=== PATIENT | female | born 1965 | race Caucasian/White ===

== ENCOUNTER 2025-05-05 10:39 | Outpatient (REF) | payer OTHER, SELFPAY ==
--- NOTE | ~2025-05-05 | XR_ITS ---
CLINICAL HISTORY: CHRONIC COUGH 2 view chest x-ray Comparison: None provided Findings: No consolidation or effusion. Normal size heart. No acute fracture. IMPRESSION: 1. No acute findings. This document has been electronically signed by: Niranjan Drummond MD on 05/07/2025 09:54:39
--- OUTSIDE RECORDS SUMMARY | 2025-05-05 11:53 | XMS_ITS | Clinical Summary ---
Author Organization [facility] 299 [facility] Address [address] [place] [address] Phone Care Team Providers Care Radio Script Writer Name Role Phone CalderonLeopoldo carroll NOAH Primary Care Provider Allergies Active Allergy Reactions Criticality Noted Date Comments Moxifloxacin Itching 01/01/2025 Cefdinir GI intolerance 01/01/2025 Medications Gavilax 17 gram/dose oral powder 17 GM BY MOUTH DAILY. DISSOLVE IN 4 TO 8 OZ OF BEVERAGE 4 Active nortriptyline (PAMELOR) 10 mg capsule Take 1 capsule (10 mg total) by mouth at bedtime. 4 Active lisinopriL (PRINIVIL,ZESTR IL) 10 mg tablet Take 1 tablet (10 mg total) by mouth. 5 Active acetic acid-hydrocorti sone (VOSOL-HC) otic solution INSTILL 4 DROPS INTO BOTH EARS DAILY 4 Active estradioL (Vivelle-Dot) 0.05 mg/24 hr See Instructions, 1 patch - change twice a week, # 24 patch, 4 Refills, Maintenance, 06/25/24 11:38:00 AM EDT, [facility], Partial fill upon patient request if the prescription is for a schedule II opioid drug., 162, cm, 06/25/24 11:23:00 EDT, Height, 62.2, kg, 11/13/23 13:59:00 EST, Dry Weight 4 Active amLODIPine (NORVASC) 2.5 mg tablet Take 1 tablet (2.5 mg total) by mouth. 5 Active acetaminophen (TYLENOL) 325 mg tablet 2 TABLET BY MOUTH EVERY 4 HOURS,INSTR:NOT TO EXCEED 4000 MG/DAY CAN GET OTC IF LESS EXPENSIVE Active Surgical History Surgery Date Site/Laterality Comments COLONOSCOPY 09/22/2024 TA x 3 COLONOSCOPY W/ POLYPECTOMY 09/06/2020 TA x 2 ESOPHAGOGASTRODUODENOSCOPY 09/06/2020 nl gastric and duodenal bx Medical History Medical History Date Comments Dyspepsia Constipation by outlet dysfunction Social History Tobacco Use Types Packs/Day Years Used Date Smoking Tobacco: Former Cigarettes Tobacco Cessation:Counseling Given: Not Answered Alcohol Use Standard Drinks/Week Comments Yes 0 (1 standard drink = 0.6 oz pur e alcohol) socially Comments Unknown Sex and Gender Information Value Date Recorded Sex Assigned at Not on file Legal Sex Female 3:43 AM EST Gender Identity Not on file Sexual Orientation Not on file Obstetrics History Last Filed Vital Signs Vital Sign Reading Time Taken Comments Blood Pressure - - Pulse - - Temperature - - Respiratory Rate - - Oxygen Saturation - - Inhaled Oxygen Concentration - - Weight 63.5 kg (140 lb) 01/01/2025 9:54 AM EST Height 162.6 cm (5' 4 ) 01/01/2025 9:54 AM EST Body Mass Index 24.03 01/01/2025 9:54 AM EST Plan of Treatment Health Maintenance Due Date Last Done Comments Breast Cancer Screening 1965 DTaP,Tdap,and Td Vaccines (1 - Tdap) 1984 Cervical Cancer Screening: Pap Smear 1986 Pneumococcal Vaccine: 50+ Years (1 of 1 - PCV) 2015 Zoster Vaccines (1 of 2) 2015 COVID-19 Vaccine ( season) 2024 01/20/2023, 11/19/2021, 03/17/2021, Additional history exists Cholesterol Screening (Lipid Panel) 08/12/2024 Colorectal Cancer Screening: Colonoscopy 08/12/2024 Depression Screening 08/12/2024 HIV Screening 08/12/2024 Hepatitis C Screening 08/12/2024 Social Influencers of Health Screening 08/12/2024 Hypertension/CHF/CAD Annual BMP Blood Test 12/26/2024 Influenza Vaccine (Season Ended) 2025 RSV Immunization Adult Patients (1 - 1-dose 75+ series) 2040 HIB Vaccines Aged Out No longer eligi ble based on patient's age to complete this topic HPV Vaccines Aged Out No longer eligi ble based on patient's age to complete this topic Hepatitis A Vaccines Aged Out No long er eligible based on patient's age to complete this topic Hepatitis B Vaccines Aged Out No long er eligible based on patient's age to complete this topic IPV Vaccines Aged Out No longer eligi ble based on patient's age to complete this topic MMR Vaccines Aged Out No longer eligi ble based on patient's age to complete this topic Meningococcal ACWY Vaccine Aged Out N o longer eligible based on patient's age to complete this topic Meningococcal B Vaccine Aged Out No l onger eligible based on patient's age to complete this topic Pneumococcal Vaccine: Pediatrics (0 to 5 Years) and At-Risk Patients (6 to 64 Years) Aged Out No longer eligible based on patient's age to complete this topic RSV Immunization Patients Under 20 months Aged Out No longer eligible based on patient's age to complete this topic Varicella Vaccines Aged Out No longer eligible based on patient's age to complete this topic Insurance [facility] Care Teams Radio Script Writer Relationship Specialty Start Date End Date Leopoldo Washburn NP [address] [place] [address] PCP - General Nurse Practitioner 01/01/25
== END 2025-05-05 10:40 | disposition home or self-care (01) ==
LOC: HO.XRAY 10:39
PROVIDERS: PCP Nurse Practitioner Family; Visit Provider Otolaryngology
DX: R05.3 Chronic cough (principal)
CPT/HCPCS: 71046

== ENCOUNTER → 2025-05-05 10:46 | Outpatient (BNV) | payer OTHER, SELFPAY | PROVIDERS: PCP Nurse Practitioner Family; Visit Provider Specialist | DX: R05.3 Chronic cough (principal) | CPT/HCPCS: 71046 ==

== ENCOUNTER 2025-06-23 10:44 | Outpatient (AMB) | payer OTHER, SELFPAY ==
--- OUTSIDE RECORDS SUMMARY | 2025-06-23 12:11 | XMS_ITS | Clinical Summary ---
Author Organization [facility] 299 [facility] Address [address] [place] [address] Phone Care Team Providers Care Rubber Cutting Machine Tender Name Role Phone CalderonLeopoldo carroll NOAH Primary Care Provider [phone] Allergies Active Allergy Reactions Criticality Noted Date Comments Moxifloxacin Itching 01/01/2025 Cefdinir GI intolerance 01/01/2025 Medications Gavilax 17 gram/dose oral powder 17 GM BY MOUTH DAILY. DISSOLVE IN 4 TO 8 OZ OF BEVERAGE 4 Active lisinopriL (PRINIVIL,ZESTR IL) 10 mg [...] MG/DAY CAN GET OTC IF LESS EXPENSIVE 5 Active nortriptyline (PAMELOR) 10 mg capsuleIndicati ons:Inflammator y bowel diseases (IBD) TAKE 1 CAPSULE DAILY EVERY NIGHT AT BEDTIME 90 capsule 3 Active Surgical History Surgery Date Site/Laterality Comments [...] Panel) 08/12/2024 Colorectal Cancer Screening: Colonoscopy 08/12/2024 HIV Screening 08/12/2024 Hepatitis C Screening 08/12/2024 Social Influencers of Health Screening 08/12/2024 Depression Screening 11/05/2024 Hypertension/CHF/CAD Annual BMP Blood Test 12/26/2024 Influenza Vaccine (#1) 2025 RSV Immunization Adult Patients (1 - [...] patient's age to complete this topic Insurance [facility] Care Teams Rubber Cutting Machine Tender Relationship Specialty Start Date End Date Leopoldo Washburn NP [address] [place] [address] PCP - General Nurse Practitioner 01/01/25
== END 2025-06-23 10:58 | disposition home or self-care (01) ==
LOC: HO.HMGAL 10:44
PROVIDERS: Visit Provider Registered Nurse Emergency
DX: J30.89 Other allergic rhinitis (principal)
CPT/HCPCS: 95117; 95165

== ENCOUNTER 2025-07-01 13:14 | Outpatient (AMB) | payer OTHER, SELFPAY ==
--- OUTSIDE RECORDS SUMMARY | 2025-07-01 13:55 | XMS_ITS | Clinical Summary ---
Author Organization [facility] 299 [facility] Address [address] [place] [address] Phone Care Team Providers Care Superintendent [employer] Name Role Phone CalderonLeopoldo carroll NOAH Primary Care Provider [phone] Allergies Active Allergy Reactions Criticality Noted Date [...] patient's age to complete this topic Insurance [facility] Care Teams Superintendent [employer] Relationship Specialty Start Date End Date Leopoldo Washburn NP [address] [place] [address] PCP - General Nurse Practitioner 01/01/25
== END 2025-07-01 13:16 | disposition home or self-care (01) ==
LOC: HO.HMGAL 13:14
PROVIDERS: Visit Provider Registered Nurse Emergency
DX: J30.89 Other allergic rhinitis (principal)
CPT/HCPCS: 95117; 95165

== ENCOUNTER 2025-07-08 11:46 | Outpatient (AMB) | payer OTHER, SELFPAY ==
--- OUTSIDE RECORDS SUMMARY | 2025-07-08 14:10 | XMS_ITS | Clinical Summary ---
Author Organization [facility] 299 [facility] Address [address] [place] [address] Phone Care Team Providers Care Composing Room Machinist Name Role Phone CalderonLeopoldo carroll NOAH Primary Care Provider [phone] Allergies Active Allergy Reactions Criticality Noted Date [...] 2015 Zoster Vaccines (1 of 2) 2015 Cholesterol Screening (Lipid Panel) 08/12/2024 Colorectal Cancer Screening: Colonoscopy 08/12/2024 HIV Screening 08/12/2024 Hepatitis C Screening 08/12/2024 Social Influencers of Health Screening 08/12/2024 Depression Screening 11/05/2024 Hypertension/CHF/CAD Annual BMP Blood Test 12/26/2024 COVID-19 Vaccine ( season) 2025 01/20/2023, 11/19/2021, 03/17/2021, Additional history exists Influenza Vaccine (#1) 2025 RSV Immunization Adult [...] patient's age to complete this topic Insurance [facility] Care Teams Composing Room Machinist Relationship Specialty Start Date End Date Leopoldo Washburn NP [address] [place] [address] PCP - General Nurse Practitioner 01/01/25
== END 2025-07-08 12:45 | disposition home or self-care (01) ==
LOC: HO.HMGAL 11:46
PROVIDERS: Visit Provider Registered Nurse Emergency
DX: J30.89 Other allergic rhinitis (principal)
CPT/HCPCS: 95117; 95165

== ENCOUNTER 2025-07-13 14:27 | Outpatient (AMB) | payer OTHER, SELFPAY ==
--- OUTSIDE RECORDS SUMMARY | 2025-07-09 23:59 | XMS_ITS | Continuity of Care Document ---
Author Organization [facility] Adult Address [address] [place] [address]- Care Team Providers Care Refractory Grinder Operator Name Role Phone Maddison ZAMORA, Leopoldo Otero Primary Care Physician [phone] [facility] Date(s): 06/09/25 - 07/09/[address] [address] Encounter Type: Triage Allergies, Adverse Reactions, Alerts Substance Criticality Severity Reaction Reaction Severity Status erythromycin Nausea, vomiting Active Avelox rash Active cefdinir High criticality Moderate Nausea, vom iting and diarrhea Active Valium Nausea Fainting Active Augmentin Nausea, vomiting Act dave Immunizations Given and Recorded Vaccine Date Status Refusal Reason tetanus/diphtheria/pertussis, acel(Tdap) 01/23/25 Given [id number] bivalent booster vax 01/20/23 Recorded SARS-CoV-2 (COVID-19) mRNA-1273 vaccine 11/19/21 R ecorded SARS-CoV-2 (COVID-19) mRNA-1273 vaccine 03/17/21 R ecorded SARS-CoV-2 (COVID-19) mRNA-1273 vaccine 02/16/21 R ecorded Medications lisinopril 30 mg oral tablet 1 tablet = 30 mg, By Mouth, Daily, # 90 tablet, 1 Refills, Maintenance, 03/10/25 2:58:00 PM EDT, Tablet, [facility], Partial fill upon patient request if the prescription is for a schedule II opioid drug., 163, cm, 02/24/25 14:40:00 EDT, Height, 62, kg, 12/12/24 12:39:00 EST, Dry Weight Start Date: 03/10/25 Status: Ordered Medication Dispense Status: Completed Quantity: 90.0 Unit: tablet Total Allowed Fills: 2 Fills Dispensed: 0 MiraLax = 17 Gm, By Mouth, Daily, 0 Refills, Maintenance, 01/23/25 3:02:00 PM EDT, Partial fill upon patientrequest if the prescription is for a schedule II opioid drug. Start Date: 01/23/25 Status: Ordered Medication Dispense Status: Completed Total Allowed Fills: 1 Fills Dispensed: 0 Nortriptyline = 10 mg, By Mouth, Daily at bedtime, 0 Refills, Maintenance, 06/19/23 10:26:00 AM EDT, Partial fill upon patient request if the prescription is for a schedule II opioid drug. Start Date: 06/19/23 Status: Ordered Medication Dispense Status: Completed Total Allowed Fills: 1 Fills Dispensed: 0 Vivelle-Dot 0.05 mg/24 hours twice weekly transdermal film, extended release See Instructions, 1 patch - change twice a week, # 24 patch, 4 Refills, Maintenance, 06/01/25 1:09:00 PM EDT, [id number], Partial fill upon patient request if the prescription is for a schedule II opioid drug., 163, cm, 04/29/25 11:14:00 EDT, Height, 62, kg, 12/12/24 12:39:00 EST, Dry Weight Start Date: 06/01/25 Status: Ordered Medication Dispense Status: Completed Quantity: 24.0 Unit: patch Total Allowed Fills: 5 Fills Dispensed: 0 Problem List Condition Confirmation Course Effective Dates Status H ealth Status Informant Atypical chest pain Confirmed Active Chronic neck pain Confirmed Active Muscle cramps Confirmed Active Cystocele Confirmed Active Decreased hearing of both ears Confirmed Active Diarrhea Confirmed Active Digital mucous cyst of toe of left foot Confirmed Active Dyslipidemia Confirmed Active Exertional dyspnea Confirmed Active Flushing Confirmed Active Flushing Confirmed Active Chronic GERD Confirmed Active Rectocele Confirmed Active Hormone replacement therapy (HRT) Confirmed Active Hyperlipidemia Confirmed Active Hypertension Confirmed Active Urinary frequency Confirmed Active Irritable bowel syndrome Confirmed Active Menopause Confirmed Active Transient weakness of right lower extremity Confirmed Active Postprandial nausea Confirmed Active Orthopnea Confirmed Active Palpitations Confirmed Active Palpitations Confirmed Active PONV (postoperative nausea and vomiting) Confirmed Active Implantable Device List Procedure Provider Procedure Date Device Type Site Robotic XI Vaginal Hyst Salpingectomy Polly Bhatt MD 08/23/23 Unknown Bladder Device Identifier Serial Number Lot or Batch Number Manufacturing Date Expiration Date Distinct Identification Code MRI Safety Implantable Status Assigning Authority Unknown Unknown Unknown Unknown 05/21/26 Unknown Unknown Active Unk nown Procedure Provider Procedure Date Device Type Site Robotic XI Vaginal Hyst Salpingectomy Polly Bhatt MD 08/23/23 Unknown Pelvis Device Identifier Serial Number Lot or Batch Number Manufacturing Date Expiration Date Distinct Identification Code MRI Safety Implantable Status Assigning Authority Unknown Unknown Unknown Unknown 03/12/26 Unknown Unknown Active Unkn own Patient Care team information Care Team Personnel Name: Mercedes Pugh RN Position: [facility] RN Member Role: Primary Care Nurse Name: Bertha Hughes RN Position: [facility] SN RN Member Role: Primary Care Nurse Name: Louisa Alarcon RN Position: [facility] RN Member Role: Primary Care Nurse Name: Leopoldo Washburn NP Position: [facility] PCO Associate Professional Member Role: PCP Address: [address] [place] [address]- Telecom: Name: Matt Reddy MD Position: [facility] ASSEMBLY INSPECTOR HELPER MD Member Role: [employer] ASSEMBLY INSPECTOR HELPER Physician Address: [address] [place] [address] [place] [address]- Telecom: Care Team Related Persons Name: EBONI PORTILLO Name: DOUGLAS PORTILLO Name: LILLIE WOODARD Name: LILLIE WOODARD Insurance Providers Guarantor name: YUMIKO WOODARD Health Plan Information #: 1 Payer: [employer] Payer Identifier: NA Member Number: [id number] Group Number: [id number] Subscriber Identifier: NEAL Relationship to Subscriber: spouse Coverage Type: Commercial Indemnity Coverage Verification Date: NA Telecom: NA Address: NA
--- OUTSIDE RECORDS SUMMARY | 2025-07-13 16:49 | XMS_ITS | Clinical Summary ---
Author Organization [facility] 299 [facility] Address [address] [place] [address] Phone Care Team Providers Care Facialist Name Role Phone CalderonLeopoldo carroll NOAH Primary Care Provider [phone] Allergies Active Allergy Reactions Criticality Noted Date [...] patient's age to complete this topic Insurance [facility] Care Teams Facialist Relationship Specialty Start Date End Date Leopoldo Washburn NP [address] [place] [address] PCP - General Nurse Practitioner 01/01/25
== END 2025-07-13 14:31 | disposition home or self-care (01) ==
LOC: HO.HMGAL 14:27
PROVIDERS: Visit Provider Registered Nurse Emergency
DX: J30.89 Other allergic rhinitis (principal)
CPT/HCPCS: 95117; 95165

== ENCOUNTER 2025-07-20 11:49 | Outpatient (AMB) | payer OTHER, SELFPAY ==
--- OUTSIDE RECORDS SUMMARY | 2025-07-20 16:28 | XMS_ITS | Clinical Summary ---
Author Organization [facility] 299 [facility] Address [address] [place] [address] Phone Care Team Providers Care Oxyhydrogen Welder Name Role Phone CalderonLeopoldo carroll NOAH Primary Care Provider [phone] Allergies Active Allergy Reactions Criticality Noted Date [...] patient's age to complete this topic Insurance [facility] Care Teams Oxyhydrogen Welder Relationship Specialty Start Date End Date Leopoldo Washburn NP [address] [place] [address] PCP - General Nurse Practitioner 01/01/25
== END 2025-07-20 11:49 | disposition home or self-care (01) ==
LOC: HO.HMGAL 11:49
PROVIDERS: PCP Nurse Practitioner Family; Visit Provider Registered Nurse Emergency
DX: J30.89 Other allergic rhinitis (principal)
CPT/HCPCS: 95117; 95165

== ENCOUNTER 2025-07-27 11:52 | Outpatient (AMB) | payer OTHER, SELFPAY ==
--- OUTSIDE RECORDS SUMMARY | 2025-07-27 14:35 | XMS_ITS | Clinical Summary ---
Author Organization [facility] 299 [facility] Address [address] [place] [address] Phone Care Team Providers Care Township Clerk Name Role Phone CalderonLeopoldo carroll NOAH Primary Care Provider [phone] Allergies Active Allergy Reactions Criticality Noted Date [...] age to complete this topic Insurance [facility] Care Teams Township Clerk Relationship Specialty Start Date End Date Leopoldo Washburn NP [address] [place] [address] PCP - General Nurse Practitioner 01/01/25
== END 2025-07-27 11:53 | disposition home or self-care (01) ==
LOC: HO.HMGAL 11:52
PROVIDERS: PCP Nurse Practitioner Family; Visit Provider Registered Nurse Emergency
DX: J30.89 Other allergic rhinitis (principal)
CPT/HCPCS: 95117; 95165

== ENCOUNTER 2025-08-10 11:33 | Outpatient (AMB) | payer OTHER, SELFPAY ==
--- OUTSIDE RECORDS SUMMARY | 2025-08-10 14:11 | XMS_ITS | Clinical Summary ---
Author Organization [facility] 299 [facility] Address [address] [place] [address] Phone Care Team Providers Care Combination Window Installer Name Role Phone CalderonLeopoldo carroll NOAH Primary Care Provider [phone] Allergies Active Allergy Reactions Criticality Noted Date Comments Moxifloxacin Itching 01/01/2025 Cefdinir GI intolerance 01/01/2025 Medications Gavilax 17 gram/dose oral powder 17 GM BY MOUTH DAILY. DISSOLVE IN 4 TO 8 OZ OF BEVERAGE 4 Active lisinopriL (PRINIVIL,ZEST RIL) 10 mg tablet Take 1 tablet (10 mg total) by mouth. 5 Active acetic acid-hydrocort isone (VOSOL-HC) otic solution INSTILL 4 DROPS INTO [...] EXPENSIVE 5 Active nortriptyline (PAMELOR) 10 mg capsuleIndicat ions:Inflammat ory bowel diseases (IBD) Take 1 capsule (10 mg total) by mouth at bedtime. 90 capsule 1 5 Active nortriptyline (PAMELOR) 10 mg capsuleIndicat ions:Inflammat ory bowel diseases (IBD) TAKE 1 CAPSULE DAILY EVERY NIGHT AT BEDTIME 90 capsule 3 5 025 Discontin ued(Reord er) Surgical History Surgery Date Site/Laterality Comments COLONOSCOPY [...] 01/01/2025 9:54 AM EST Plan of Treatment Upcoming Encounters Date Type Department Care Team (Late st Contact Info) Description 01/18/2026 2:40 PM EDT Office Visit Gastroenterology - [place] [address] [place] [address] Shameka Gil NP 175 [facility] [address] [place] [address] Health Maintenance Due Date Last Done Comments Breast Cancer Screening 1965 Colorectal Cancer Screening: Colonoscopy 1965 DTaP,Tdap,and Td Vaccines (1 - Tdap) 1984 Cervical Cancer Screening: Pap Smear 1986 Pneumococcal Vaccine: 50+ Years (1 of 1 - PCV) 2015 Zoster Vaccines (1 of 2) 2015 Cholesterol Screening (Lipid Panel) 08/12/2024 HIV Screening 08/12/2024 Hepatitis C Screening [...] patient's age to complete this topic Insurance [employer] Care Teams Combination Window Installer Relationship Specialty Start Date End Date Leopoldo Washburn NP [address] [place], [place] PCP - General Nurse Practitioner 01/01/25
== END 2025-08-10 11:36 | disposition home or self-care (01) ==
LOC: HO.HMGAL 11:33
PROVIDERS: PCP Nurse Practitioner Family; Visit Provider Registered Nurse Emergency
DX: J30.89 Other allergic rhinitis (principal)
CPT/HCPCS: 95117; 95165

== ENCOUNTER 2025-08-19 13:43 | Outpatient (AMB) | payer OTHER, SELFPAY | END 2025-08-19 13:45 | disposition home or self-care (01) | LOC: HO.HMGAL 13:43 | PROVIDERS: PCP Nurse Practitioner Family; Visit Provider Registered Nurse Emergency | DX: J30.89 Other allergic rhinitis (principal) | CPT/HCPCS: 95117; 95165 ==

== ENCOUNTER 2025-08-26 10:13 | Outpatient (AMB) | payer OTHER, SELFPAY ==
--- OUTSIDE RECORDS SUMMARY | 2025-08-26 12:31 | XMS_ITS | Clinical Summary ---
Author Organization [facility] 299 [facility] Address [address] [place] [address] Phone Care Team Providers Care Health Safety And Environment Manager Name Role Phone CalderonLeopoldo carroll NOAH Primary Care Provider [phone] Allergies Active Allergy Reactions Criticality Noted Date [...] 2:40 PM EDT Office Visit Gastroenterology - [address] [place] [address] Shameka Gil NP 175 [facility] [address] [place] [address] Health Maintenance Due Date Last Done Comments [...] patient's age to complete this topic Insurance [employer] Care Teams Health Safety And Environment Manager Relationship Specialty Start Date End Date Leopoldo Washburn NP [address] [place], [place] PCP - General Nurse Practitioner 01/01/25
== END 2025-08-26 10:13 | disposition home or self-care (01) ==
LOC: HO.HMGAL 10:13
PROVIDERS: PCP Nurse Practitioner Family; Visit Provider Registered Nurse Emergency
DX: J30.89 Other allergic rhinitis (principal)
CPT/HCPCS: 95117; 95165

== ENCOUNTER 2025-09-07 11:45 | Outpatient (AMB) | payer OTHER, SELFPAY | END 2025-09-07 11:45 | disposition home or self-care (01) | LOC: HO.HMGAL 11:45 | PROVIDERS: PCP Nurse Practitioner Family; Visit Provider Registered Nurse Emergency | DX: J30.89 Other allergic rhinitis (principal) | CPT/HCPCS: 95117; 95165 ==

== ENCOUNTER 2025-09-14 11:53 | Outpatient (AMB) | payer OTHER, SELFPAY ==
--- OUTSIDE RECORDS SUMMARY | 2025-09-11 23:59 | XMS_ITS | Continuity of Care Document ---
Author Organization [facility] Adult Address [address] [place] [address]- Care Team Providers Care Industrial Safety Engineer Name Role Phone Maddison CLINICAL STATISTICS MANAGER, Leopoldo Otero Primary Care Physician [id number] Date[facility]/12[facility]25 - 09/11/[address] [address] Encounter Type: Triage Allergies, Adverse Reactions, Alerts Substance Criticality Severity Reaction Reaction Severity Status erythromycin Nausea, vomiting Active cefdinir High criticality Moderate Nausea, vom iting and diarrhea Active Valium Nausea Fainting Active Augmentin Nausea, vomiting Act dave Avelox rash Active Immunizations Given and Recorded Vaccine Date Status Refusal Reason tetanus/diphtheria/pertussis, acel(Tdap) 01/23/25 Given [id number] bivalent booster vax 01/20/23 Recorded SARS-CoV-2 (COVID-19) mRNA-1273 vaccine 11/19/21 R ecorded SARS-CoV-2 (COVID-19) mRNA-1273 vaccine 03/17/21 R ecorded SARS-CoV-2 (COVID-19) mRNA-1273 vaccine 02/16/21 R ecorded Medications escitalopram 10 mg oral tablet 1 tablet = 10 mg, By Mouth, Daily, # 90 tablet, 0 Refills, Maintenance, 07/27/25 2:38:00 PM EDT, Tablet, [id number], Partial fill upon patient request if the prescription is for a schedule II opioid drug., 163, cm, 07/27/25 14:15:00 EDT, Height, 62, kg, 12/12/24 12:39:00 EST, Dry Weight Start Date: 07/27/25 Status: Ordered Medication Dispense Status: Completed Quantity: 90.0 Unit: tablet Total Allowed Fills: 1 Fills Dispensed: 0 lisinopril 30 mg oral tablet 1 tablet = 30 mg, By Mouth, Daily, # 90 tablet, 1 Refills, Maintenance, 08/12/25 4:35:00 PM EDT, Tablet, [id number], Partial fill upon patient request if the prescription is for a schedule II opioid drug., 163, cm, 07/27/25 14:15:00 EDT, Height, 62, kg, 12/12/24 12:39:00 EST, Dry Weight Start Date: 08/12/25 Status: Ordered Medication Dispense Status: Completed Quantity: [...] 4 Refills, Maintenance, 06/01/25 1:09:00 PM EDT, [id number], Partial fill upon patient request if [...] bowel syndrome Confirmed Active Menopause Confirmed Active Anxiety with depression Confirmed Active Transient weakness of right lower extremity Confirmed Active Postprandial nausea Confirmed Active Orthopnea Confirmed Active Palpitations Confirmed Active Palpitations Confirmed Active PONV (postoperative nausea and vomiting) Confirmed Active Primary insomnia Confirmed Active Social History Social History Type Response Smoking Status Former smoker, quit more than 30 days ago; Other: 1991 quit; entered on: 03/16/21 Sexual Orientation Self described orien tation: ; Straight or heterosexual Sex Sex Representation Female (finding) Implantable Device List Procedure Provider Procedure Date [...] Team Personnel Name: Mercedes Pugh RN Position: [facility] RN Member Role: Primary Care Nurse Name: Bertha Hughes RN Position: [facility] RN Member Role: Primary Care Nurse Name: Louisa Alarcon RN Position: [facility] RN Member Role: Primary Care Nurse Name: Leopoldo Washburn NP Position: [facility] PCO Associate Professional Member Role: PCP Address: [address] [place] [address]- Telecom: Name: Barry HOLT, Matt Vyas Position: [facility] MEMBERSHIP SOLICITOR MD Member Role: [employer] MEMBERSHIP SOLICITOR Physician Address: [address] [place] [address]'s [facility] Incident Coordinator [address] Telecom: Care Team Related Persons Name: BANDAREBONI Name: DOUGLAS PORTILLO Name: LILLIE WOODARD Name: LILLIE WOODARD Insurance Providers Guarantor name: [facility]KO [facility] Plan Information #: 1 Payer: [facility] Payer Identifier: NEAL Member Number: [id number] Group Number: NA Subscriber Identifier: NA Relationship to Subscriber: spouse Coverage Type: NA Coverage Verification Date: NA Telecom: Address:
--- OUTSIDE RECORDS SUMMARY | 2025-09-14 14:16 | XMS_ITS | Clinical Summary ---
Author Organization [facility] 299 [facility] Address [address] [place] [address] Phone Care Team Providers Care Anchor Operator Name Role Phone CalderonLeopoldo carroll NOAH Primary Care Provider [phone] Allergies Active Allergy Reactions Criticality Noted Date [...] mg capsuleIndicati ons:Inflammator y bowel diseases (IBD) Take 1 capsule (10 mg total) by mouth at bedtime. 90 capsule 1 Active Surgical History Surgery Date Site/Laterality Comments [...] PM EDT Office Visit Gastroenterology - [address] [phone] Shameka Gil NP [address] [address] Health Maintenance Due Date Last Done Comments [...] patient's age to complete this topic Insurance [employer] Member Subscriber Plan / Payer (Ef fective 2025-Present) Name:SUREKHA DC Relation to Subscriber:Spouse Name:DOUGLAS PORTILLO Date of :1964 (Home) Address: [address] [place] [phone] Payer ID:[id number] Type:Not on file Address: [place] [phone] Care Teams Anchor Operator Relationship Specialty Start Date End Date Leopoldo Washburn NP [address] [place] [address] PCP - General Nurse Practitioner 01/01/25
== END 2025-09-14 11:53 | disposition home or self-care (01) ==
LOC: HO.HMGAL 11:53
PROVIDERS: PCP Nurse Practitioner Family; Visit Provider Registered Nurse Emergency
DX: J30.89 Other allergic rhinitis (principal)
CPT/HCPCS: 95117; 95165

== ENCOUNTER 2025-09-23 10:23 | Outpatient (AMB) | payer OTHER, SELFPAY ==
--- OUTSIDE RECORDS SUMMARY | 2025-09-23 19:57 | XMS_ITS | Clinical Summary ---
Author Organization [facility] 299 [facility] Address [address] [place] [address] Phone Care Team Providers Care Senior Construction Manager Name Role Phone CalderonLeopoldo carroll NOAH Primary Care Provider [phone] Allergies Active Allergy Reactions Criticality Noted Date [...] PM EDT Office Visit Gastroenterology - [address] [phone] Shameka Gil NP [address] [address] Health Maintenance Due Date Last Done Comments [...] patient's age to complete this topic Insurance [employer] Member Subscriber Plan / Payer (Ef fective 2025-Present) Name:SUREKHA DC Relation to Subscriber:Spouse Name:DOUGLAS PORTILLO Date of :1964 (Home) Address: [address] [place] [phone] Payer ID:[id number] Type:Not on file Address: [place] [phone] Care Teams Senior Construction Manager Relationship Specialty Start Date End Date Leopoldo Washburn NP [address] [place] [address] PCP - General Nurse Practitioner 01/01/25
== END 2025-09-23 10:23 | disposition home or self-care (01) ==
LOC: HO.HMGAL 10:23
PROVIDERS: PCP Nurse Practitioner Family; Visit Provider Registered Nurse Emergency
DX: J30.89 Other allergic rhinitis (principal)
CPT/HCPCS: 95117; 95165

== ENCOUNTER 2025-09-28 11:36 | Outpatient (AMB) | payer OTHER, SELFPAY ==
--- OUTSIDE RECORDS SUMMARY | 2025-09-28 15:25 | XMS_ITS | Clinical Summary ---
Author Organization [facility] 299 [facility] Address [address] [place] [address] Phone Care Team Providers Care Grinding Wheel Facer Name Role Phone CalderonLeopoldo carroll NOAH Primary Care Provider [phone] Allergies Active Allergy Reactions Criticality Noted Date [...] PM EDT Office Visit Gastroenterology - [address] [phone] Shameka Gil NP [address] [address] Health Maintenance Due Date Last Done Comments [...] patient's age to complete this topic Insurance [employer] Member Subscriber Plan / Payer (Ef fective 2025-Present) Name:SUREKHA DC Relation to Subscriber:Spouse Name:DOUGLAS PORTILLO Date of :1964 (Home) Address: [address] [place] [phone] Payer ID:[id number] Type:Not on file Address: [place] [phone] Care Teams Grinding Wheel Facer Relationship Specialty Start Date End Date Leopoldo Washburn NP [address] [place] [address] PCP - General Nurse Practitioner 01/01/25
== END 2025-09-28 11:36 | disposition home or self-care (01) ==
LOC: HO.HMGAL 11:36
PROVIDERS: PCP Nurse Practitioner Family; Visit Provider Registered Nurse Emergency
DX: J30.89 Other allergic rhinitis (principal)
CPT/HCPCS: 95117; 95165

== ENCOUNTER 2025-10-07 13:38 | Outpatient (AMB) | payer OTHER, SELFPAY ==
--- OUTSIDE RECORDS SUMMARY | 2025-10-07 16:11 | XMS_ITS | Clinical Summary ---
Author Organization [facility] 299 [facility] Address [address] [place] [address] Phone Care Team Providers Care Supervisor [place]robing Name Role Phone CalderonLeopoldo carroll NOAH Primary Care Provider [phone] Allergies Active Allergy Reactions Criticality Noted Date [...] PM EDT Office Visit Gastroenterology - [address] [phone] Shameka Gil NP [address] [address] Health Maintenance Due Date Last Done Comments [...] patient's age to complete this topic Insurance [employer] Member Subscriber Plan / Payer (Ef fective 2025-Present) Name:SUREKHA DC Relation to Subscriber:Spouse Name:DOUGLAS PORTILLO Date of :1964 (Home) Address: [address] [place] [phone] Payer ID:[id number] Type:Not on file Address: [place] [phone] Care Teams Supervisor [place]ro[place] Relationship Specialty Start Date End Date Leopoldo Washburn NP [address] [place] [address] PCP - General Nurse Practitioner 01/01/25
== END 2025-10-07 13:38 | disposition home or self-care (01) ==
LOC: HO.HMGAL 13:38
PROVIDERS: PCP Nurse Practitioner Family; Visit Provider Registered Nurse Emergency
DX: J30.89 Other allergic rhinitis (principal)
CPT/HCPCS: 95117; 95165

== ENCOUNTER 2025-10-12 11:41 | Outpatient (AMB) | payer OTHER, SELFPAY | END 2025-10-12 11:42 | disposition home or self-care (01) | LOC: HO.HMGAL 11:41 | PROVIDERS: PCP Nurse Practitioner Family; Visit Provider Registered Nurse Emergency | DX: J30.89 Other allergic rhinitis (principal) | CPT/HCPCS: 95117; 95165 ==

== ENCOUNTER 2025-10-21 11:07 | Outpatient (AMB) | payer OTHER, SELFPAY ==
--- OUTSIDE RECORDS SUMMARY | 2025-10-21 14:45 | XMS_ITS | Clinical Summary ---
Author Organization [facility] 299 [facility] Address [address] [place] [address] Phone Care Team Providers Care Eligibility Technician Name Role Phone CalderonLeopoldo carroll NOAH Primary Care Provider [phone] Allergies Active Allergy Reactions Criticality Noted Date [...] on file Sexual Orientation Not on file Last Filed Vital Signs Vital Sign Reading [...] PM EDT Office Visit Gastroenterology - [address] [phone] Shameka Gil NP [address] [address] Health Maintenance Due Date Last Done Comments [...] Annual BMP Blood Test 12/26/2024 COVID-19 Vaccine (2024- season) 2025 01/20/2023, 11/19/2021, 03/17/2021, Additional history [...] patient's age to complete this topic Insurance [employer] Care Teams Eligibility Technician Relationship Specialty Start Date End Date Leopoldo Washburn NP [address] [place] [address] PCP - General Nurse Practitioner 01/01/25
== END 2025-10-21 11:08 | disposition home or self-care (01) ==
LOC: HO.HMGAL 11:07
PROVIDERS: PCP Nurse Practitioner Family; Visit Provider Registered Nurse Emergency
DX: J30.89 Other allergic rhinitis (principal)
CPT/HCPCS: 95117; 95165

== ENCOUNTER 2025-10-26 11:32 | Outpatient (AMB) | payer OTHER, SELFPAY ==
--- OUTSIDE RECORDS SUMMARY | 2025-10-26 14:46 | XMS_ITS | Clinical Summary ---
Author Organization [facility] 299 [facility] Address [address] [place] [address] Phone Care Team Providers Care Court Monitor Name Role Phone CaledronLeopoldo carroll NOAH Primary Care Provider [phone] Allergies Active Allergy Reactions Criticality Noted Date [...] PM EDT Office Visit Gastroenterology - [address] [phone] Shameka Gil NP [address] [address] Health Maintenance Due Date Last Done Comments [...] patient's age to complete this topic Insurance [employer] Care Teams Court Monitor Relationship Specialty Start Date End Date Leopoldo Washburn NP [address] [place] [address] PCP - General Nurse Practitioner 01/01/25
== END 2025-10-26 11:33 | disposition home or self-care (01) ==
LOC: HO.HMGAL 11:32
PROVIDERS: PCP Nurse Practitioner Family; Visit Provider Registered Nurse Emergency
DX: J30.89 Other allergic rhinitis (principal)
CPT/HCPCS: 95117; 95165